=== PATIENT | female | born 1950 | race Hispanic/Latino ===

== ENCOUNTER 2017-04-29 06:06 | Day surgery (SDC) | payer MEDICARE ==
[2017-03-04 11:49] VITALS: BMI 43.5
[2017-04-29] MEDS ORDERED: Propofol 10 mg/ml Inj (20 ML) ONE (07:16)
[2017-04-29] MEDS ORDERED: Midazolam 2 MG/2 ML VIAL ONE (07:17)
[2017-04-29] MEDS ORDERED: Lidocaine 2% Inj (20ml) ONE (07:17)
[2017-04-29] MEDS ORDERED: Lidocaine 1% Inj (20ml) ONE (07:25)
[2017-04-29] MEDS: Bupivacaine 0.5% Inj(30mL) ONE ×2 (07:45→08:23)
[2017-04-29] MEDS ORDERED: HYDROmorphone 0.5 mg/0.5 ml ISec IVP PRN ×2 (08:38→09:01)
[2017-04-29] MEDS ORDERED: Oxycodone/Acetaminophen 5/325 mg Tab PO PRN (08:44)
[2017-04-29] MEDS ORDERED: Lactated Ringer's 1,000 ML IV SCH (08:45)
[2017-04-29 10:20] VITALS: RESP 20; TEMP 98.5; O2SAT 97
[2017-04-29 11:36] VITALS: BP 128/68; PULSE 71
--- NOTE | 2017-04-29 12:50 | OP ---
PROCEDURE DATE: 04/29/2017 PREOPERATIVE DIAGNOSIS: Carpal tunnel syndrome, right hand. POSTOPERATIVE DIAGNOSIS: Carpal tunnel syndrome, right hand. PROCEDURE: Open carpal tunnel release with [place]. TYPE OF ANESTHESIA: Local with IV sedation. DESCRIPTION OF PROCEDURE: The patient is taken to the OR, right hand prepped and draped in sterile fashion. A 1 g of Ancef was given preop and IV sedation given and she had a digital palmar block previously about 30 minutes before the incision. Then, we made an incision over the right palm in the line of the fourth digit radial side crossing the [place] line for about an inch. The dissection went down to the palmar fascia that we explored and dissected out the palmar fascia to allow us to see the transverse carpal ligament that was covering the nerve and we put the [place] in, first checked to separate the nerve in the transverse carpal ligament and a second check to open the space between the fascia and the transverse carpal ligament and the third check had been little more proximal and then with a protected knife, we incised the transverse carpal ligament down to and into the distal forearm fascia. Tourniquet was put in prior to the surgery to allow us to see bloodless field and the tourniquet was released and a little oozing we had was treated with compression and superficial coagulation. Once everything was dry and irrigated out the area, we closed the skin with 3-0 nylon interrupted and sent the patient to recovery room with compression dressing and put a nice protective dressing. Дмитрий Núñez DO
== END 2017-04-29 11:45 | disposition home or self-care (01) ==
LOC: SDS 06:06
PROVIDERS: ATTEND Orthopaedic Surgery
DX: G56.01 Carpal tunnel syndrome, right upper limb (principal)
CPT/HCPCS: 64721; J0690; J1170; J2250; J2704; J3010; J7120 ×2

== ENCOUNTER 2018-05-16 13:16 | Outpatient (CLI) | payer MEDICARE | END 2018-05-16 13:17 | disposition home or self-care (01) | LOC: RAD 13:16 ==